=== PATIENT | female | born 2005 | race Hispanic/Latino ===

== ENCOUNTER 2025-01-23 23:10 | Emergency (ER) | payer MEDICAID ==
[~2025-01-23] VITALS: Ht 160 cm; Wt 56.7 kg
[2025-01-23 23:50] LABS: BASOPHILS # (AUTO) 0.04 K/uL (0.00-0.20); BASOPHILS % (AUTO) 0.4 % (0.0-5.0); EOSINOPHILS # (AUTO) 0.54 K/uL (0.00-0.70); EOSINOPHILS % (AUTO) 5.2 % (0.0-8.0); HEMATOCRIT 32.4 % (36-48); IMMATURE GRANULOCYTE ABSOLUTE 0.03 K/uL (0-1); LYMPHOCYTES % (AUTO) 19.3 % (21.0-51.0); MEAN CORPUSCULAR HEMOGLOBIN 27.8 pg (27.0-33.0); MEAN CORPUSCULAR HGB CONC 33.6 g/dL (32.0-36.0); MEAN CORPUSCULAR VOLUME 82.7 fL (80-100); MONOCYTES % (AUTO) 9.7 % (3.0-13.0); NEUTROPHILS # (AUTO) 6.8 K/uL (1.8-7.7); NEUTROPHILS % (AUTO) 65.1 % (40.0-77.0); PLATELET COUNT (AUTO) 183 K/uL (130-400); RED BLOOD CELL COUNT(AUTO) 3.92 MIL/uL (4.00-5.50); RED CELL DISTRIBUTION WIDTH 17.2 % (11.0-15.5); WHITE BLOOD COUNT (AUTO) 10.4 K/uL (4.8-10.8)
[2025-01-23 23:59] LABS: CREATININE 0.4 mg/dL (0.5-1.0); POTASSIUM 3.4 mmol/L (3.5-5.1)
[2025-01-24 00:03] LABS: ALBUMIN 3.1 g/dL (3.5-5.0); BILIRUBIN,DIRECT 0.1 mg/dL (0.0-0.3); BILIRUBIN,TOTAL 0.2 mg/dL (0.2-1.0); TOTAL PROTEIN, SERUM 6.6 g/dL (6.0-8.3)
[2025-01-24] MEDS: acetaMINOPHEN 325 MG TAB PO STA (00:09)
[2025-01-24] MEDS: 0.9%NACL 1000ML 1,000 ML IV STA (00:10)
[2025-01-24 00:36] LABS: APPEARANCE,URINE CLEAR (CLEAR); BILIRUBIN,URINE NEGATIVE (NEGATIVE); GLUCOSE, URINE (UA) NEGATIVE (NEGATIVE); KETONES,URINE NEGATIVE (NEGATIVE); LEUKOCYTE ESTERASE ,URINE NEGATIVE Leu/uL (NEGATIVE); NITRATE,URINE NEGATIVE (NEGATIVE); OCCULT BLOOD,URINE NEGATIVE (NEGATIVE); PH,URINE 7.5 (5.0-8.0); PROTEIN,URINE NEGATIVE (NEGATIVE); UROBILINOGEN,URINE 0.2 mg/dL (0.2-1.0)
[2025-01-24 00:37] LABS: ADD UA MICROSCOPIC NO; COLOR,URINE Light-Yellow (YELLOW)
[2025-01-24 01:02] LABS: SARS-CoV-2, RNA, NAAT NEGATIVE SARS CoV-2 (NEGATIVE)
--- NOTE | 2025-01-24 01:07 | ERN ---
ED Note History of Present Illness Stated Complaint: HYPERTENSION, ABD CRAMPING Chief Complaint: Multiple Complaints Time Seen by MD: 23:36 Time Seen by Midlevel: 23:40 Dictation: 19-year-old female with no past medical history coming in with complaints of abdominal cramping, headache, dizziness stuffy nose and elevated blood pressure at home. As per mother patient states the initial blood pressure when she began to complain of a headache was in the 150 systolic. Patient is 17 weeks . . OBGYN is from [place]. Denies any vaginal bleeding or vaginal discharge Allergies: Coded Allergies: No Known Allergies (Unverified Allergy, Unknown, 01/23/25) Past Medical History Past Medical History: No Pertinent History Surgical History: None : 1 Review of System Dictation Constitutional: Negative for fever,chills, and weight loss Eyes: Negative for injury, pain,redness, and discharge ENT: Negative for injury,pain or swelling Cardiovascular: Negative for chest pain, palpitations, and edema Respiratory: Negative for shortness of breath, cough, and wheezing, Abdomen/GI: Negative for abdominal pain, nausea, vomiting, diarrhea, and constipation Back: Negative for injury and pain : Negative for injury, bleeding and discharge MS/Extremity: Negative for injury and deformity Skin: Negative for rash, and discoloration Neuro: Complaining of headache, no weakness, no numbness, no tingling, and no seizure Psych: Negative for suicide ideation, homicidal ideation, and hallucinations Review of Systems: was completed Initial Vital Sign VS Vital Signs Date Time Temp Pulse Resp B/P (MAP) Pulse Ox O2 Delivery O2 Flow Rate FiO2 01/23/25 23:11 98.4 75 18 119/83 100 Room Air 01/24/25 00:15 0 21 Physical Exam Dictation General: awake, alert, NAD Head/Face: Normocephalic, atraumatic Eyes: PERRL, EOMI, vision at baseline ENT: oral cavity clear, TMs clear, no signs of infection Neck: Trachea midline, supple, no nuchal rigidity Cardiovascular: RRR, normal S1/S2, No MRGs, no JVD Respiratory: CTAB, no respiratory distress, No rales or wheezes Abdomen: Soft, non-tender, non-distended, normal bowel sounds, no guarding or rebound. Skin: Warm, dry, normal turgor, no rash MS/Extremity: Pulses equal, no cyanosis, neurovascular intact, FROM Neuro: COAx4, GCS 15, strength 5/5, CN 2-12 intact, normal cerebellar exam, normal gait, Psych: Normal behavior, mood, and affect normal Results (Laboratory/Radiology) Laboratory/Radiology Laboratory Tests Test 01/23/25 23:45 01/24/25 00:23 White Blood Count 10.4 K/uL (4.8-10.8) Red Blood Count 3.92 MIL/uL (4.00-5.50) L Hemoglobin 10.9 g/dL (12.0-16.0) L Hematocrit 32.4 % (36-48) L Mean Corpuscular Volume 82.7 fL (80-100) Mean Corpuscular Hemoglobin 27.8 pg (27.0-33.0) Mean Corpuscular Hemoglobin Concent 33.6 g/dL (32.0-36.0) Red Cell Distribution Width 17.2 % (11.0-15.5) H Platelet Count 183 K/uL (130-400) Mean Platelet Volume 9.9 fL (7.5-10.5) Immature Granulocyte % (Auto) 0.3 % (0-1) Neutrophils (%) (Auto) 65.1 % (40.0-77.0) Lymphocytes (%) (Auto) 19.3 % (21.0-51.0) L Monocytes (%) (Auto) 9.7 % (3.0-13.0) Eosinophils (%) (Auto) 5.2 % (0.0-8.0) Basophils (%) (Auto) 0.4 % (0.0-5.0) Neutrophils # (Auto) 6.8 K/uL (1.8-7.7) Lymphocytes # (Auto) 2.0 K/uL (1.0-4.8) Monocytes # (Auto) 1.0 K/uL (0.1-1.0) Eosinophils # (Auto) 0.54 K/uL (0.00-0.70) Basophils # (Auto) 0.04 K/uL (0.00-0.20) Absolute Immature Granulocyte (auto 0.03 K/uL (0-1) Nucleated Red Blood Cells 0.0 % (0.0-0.19) Sodium Level 139 mmol/L (136-145) Potassium Level 3.4 mmol/L (3.5-5.1) L Chloride Level 105 mmol/L (101-111) Carbon Dioxide Level 23 mmol/L (21-32) Blood Urea Nitrogen 8 mg/dL (7-18) Creatinine 0.4 mg/dL (0.5-1.0) L Glomerular Filtration Rate Calc 146 mL/min (>90) Random Glucose 102 mg/dL (70-105) Total Calcium 8.6 mg/dL (8.5-10.1) Total Bilirubin 0.2 mg/dL (0.2-1.0) Direct Bilirubin 0.1 mg/dL (0.0-0.3) Aspartate Amino Transf (AST/SGOT) 10 U/L (10-37) Alanine Aminotransferase (ALT/SGPT) 7 U/L (12-78) L Alkaline Phosphatase 62 U/L (50-136) Total Protein 6.6 g/dL (6.0-8.3) Albumin 3.1 g/dL (3.5-5.0) L Urine Color Light-Yellow (YELLOW) Urine Appearance CLEAR (CLEAR) Urine pH 7.5 (5.0-8.0) Urine Specific [place] 1.009 (1.001-1.031) Urine Protein NEGATIVE mg/dL (NEGATIVE) Urine Glucose (UA) NEGATIVE mg/dL (NEGATIVE) Urine Ketones NEGATIVE mg/dL (NEGATIVE) Urine Occult Blood NEGATIVE (NEGATIVE) Urine Nitrate NEGATIVE (NEGATIVE) Urine Bilirubin NEGATIVE mg/dL (NEGATIVE) Urine Urobilinogen 0.2 mg/dL (0.2-1.0) Urine Leukocyte Esterase NEGATIVE Kev/uL Influenza Type A Antigen Negative For Type A Influenza Type B Antigen Negative For Type B SARS-CoV-2, RNA, NAAT NEGATIVE SARS CoV-2 Labs Reviewed?: Yes ED Course ED Course Orders Procedure Category Date Status Time Cbc With Differential LAB 01/23/25 Complete 23:34 Basic Metabolic Panel LAB 01/23/25 Complete 23:34 Hepatic Function Panel LAB 01/23/25 Complete 23:34 Urinalysis Profile LAB 01/23/25 Complete 23:34 0.9%Nacl 1000ml (Ns PHA 01/23/25 Complete 1000ml) 23:43 Acetaminophen 325 Tab PHA 01/23/25 Complete (Tylenol 325mg Tab 23:43 Us Ob >14 Weeks US 01/23/25 Taken 23:43 Influenza Type A & B, LAB 01/24/25 Complete Rapid 00:46 Covid Rna Naat LAB 01/24/25 Complete 00:46 Ceftriaxone 1g Vial PHA 01/24/25 Complete (Rocephine 1g Inj) 01:24 Lactated Ringers PHA 01/24/25 Complete 1000ml (Lactated 01:44 Acetaminophen 325 Tab PHA 01/24/25 Complete (Tylenol 325mg Tab 02:00 Current Medications Medications (Trade) Dose Ordered Sig/Miguel Angel Route PRN Reason Start Time Stop Time Status Last Admin Dose Admin Acetaminophen (TYLenol 325MG TAB) 325 mg ONCE ONCE PO 01/24/25 02:00 01/24/25 02:01 DC 01/24/25 01:56 Acetaminophen (TYLenol 325MG TAB) 650 mg ONCE STAT PO 01/23/25 23:43 01/23/25 23:45 DC 01/24/25 00:09 Ceftriaxone Sodium 1 ml @ As Directed STK-MED ONCE .ROUTE 01/24/25 01:24 01/24/25 01:24 DC Lactated Ringer's (Lactated Ringers 1000ml) 1,000 ml BOLUS STAT IV 01/24/25 01:44 01/24/25 01:50 DC 01/24/25 01:55 Sodium Chloride 1,000 ml @ 1,000 mls/hr Q1H STAT IV 01/23/25 23:43 01/24/25 00:42 DC 01/24/25 00:10 Vital Signs Date Time Temp Pulse Resp B/P (MAP) Pulse Ox O2 Delivery O2 Flow Rate FiO2 01/24/25 00:15 98.4 63 18 110/74 98 Room Air* 0 21 01/23/25 23:11 98.4 75 18 119/83 100 Room Air Patient's lab work was negative. She did feel better after receiving the fluids. I gave her a 2 L. the transvaginal ultrasound showed a normal healthy fetus. Patient stable for discharge after completing her 2 L of fluid. Medical Decision Making MDM Patient has a quite broad constellation of symptoms each of which will need to be looked at carefully through lab analysis. We will also get a transvaginal ultrasound to assure health of the fetus. DX & DISP Disposition: Discharge Departure Impression: Primary Impression: Additional Impression: Dehydration Condition: Stable Additional Instructions: Please maintain adequate hydration. For headaches Tylenol is really the only medication safe for to treat headaches. For your seasonal allergies either Benadryl or Zyrtec is fine. However please discuss these with your photo producer as overuse of Benadryl can cause dizziness drowsiness weakness. Please come back to the emergency room if you have recurrence of your symptoms. Referrals: JUSTIN QUISPE MD (PCP) NIKOLE LYMAN NP January 24, 2025 01:07 ANAT RODRIGUEZ MD January 24, 2025 02:16
[2025-01-24 01:09] LABS: INFLUENZA TYPE A Negative For Type A (NEGATIVE); INFLUENZA TYPE B Negative For Type B (NEGATIVE)
[2025-01-24] MEDS: LACTATED RINGERS 1000ML IV STA (01:55)
[2025-01-24] MEDS: acetaMINOPHEN 325 MG TAB PO ONE (01:56)
[2025-01-24] MEDS: cefTRIAXone 1G VIAL 1 GM ONE (02:08)
[2025-01-24 02:51] VITALS: BP 106/68; PULSE 68; RESP 20; TEMP 98.6; O2SAT 97
--- NOTE | 2025-01-24 08:45 | HMCIMG ---
US OB >14 WEEKS HISTORY: abdominal cramping. FINDINGS: Single fetus in breech presentation. heart rate: 146 bpm. Amniotic fluid index: 7 cm- normal. Placenta: Anterior and grade 0. anatomical scan is limited. stomach, urinary bladder, cord insertion, three-vessel cord and four-chamber heart view are available and normal. Other structures not well seen. Cervical canal length: cm cm. BIOMETRIC DATA: Biparietal diameter: 4.34 cm, consistent with gestational age of 19 weeks 1 day. Head circumference: 15.47 cm, consistent with gestational age of 18 weeks 3 days. Abdominal circumference: 13.16 cm, consistent with gestational age of 18 weeks 5 days. Femoral length: 2.86 cm, consistent with gestational age of 18 weeks 6 days. weight: 253 grams. IMPRESSION: Single intrauterine of 18 weeks 5 days.
== END 2025-01-24 03:06 | disposition home or self-care (01) ==
LOC: EDH 23:10
DX: O99.282 Endocrine, nutritional and metabolic diseases complicating pregnancy, second trimester (principal); O26.892 Other specified pregnancy related conditions, second trimester; E86.0 Dehydration; Z20.822 Contact with and (suspected) exposure to COVID-19; R10.9 Unspecified abdominal pain; R03.0 Elevated blood-pressure reading, without diagnosis of hypertension; Z3A.17 17 weeks gestation of pregnancy
CPT/HCPCS: 99284; 76805; 87635; 80076; 80048; 85025; 87804 ×2; 81003; 36415; 96360; 96361; J7120; J7030; J0696